=== PATIENT | male | born 1960 | race Caucasian/White ===

== ENCOUNTER → 2016-10-23 | Day surgery (SDC) | payer MEDICARE, SELFPAY ==
[~2016-10-23] VITALS: Ht 182.9 cm; Wt 99.8 kg
[~2016-10-23] MED LIST: ATARAX25 MG PO; BACTRIM DS1 TAB PO; CELEBREX200 MG PO; CYMBALTA60 MG PO; FLOMAX0.4 MG PO; LIPITOR10 MG PO; LYRICA200 MG PO; SINGULAIR10 MG PO; TYLENOL WITH C1 EACH PO; ZYRTEC10 MG PO
--- NOTE | ~2016-10-23 | OR ---
PATIENT'S NAME: SOLOMON MUHAMMAD [facility] AGE: 56 Y [address] 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 Left ureter stone. 2. Left partial renal duplication. POSTOPERATIVE DIAGNOSES: 1. Left ureter stone. 2. Left partial renal duplication. PROCEDURE PERFORMED: Cystoscopy, left retrograde pyelogram, left ureteroscopy with stent placement. ANESTHESIA: General. COMPLICATIONS: None. INDICATION FOR PROCEDURE: The patient is a 56-year-old male with a 3.5 x 2 mm left ureter stone in the proximal lower pole ureter. DESCRIPTION OF PROCEDURE: After informed consent was obtained, the patient was taken to the operating room. A general anesthetic was applied and he was placed in the dorsal lithotomy position. The groin area was prepped and draped in normal sterile fashion. Cystoscope was introduced into the urethra and bladder without difficulty. The left ureteral orifice was identified and cannulated with a guidewire up into the lower pole ureter pelvis. I then placed a yellow Flexi-Tip catheter over the guidewire into the distal ureter and injected the contrast. This filled up the ureter and the collecting system. No definite stones were noted or filling defects. I retracted the catheter further back into the ureter and injected more contrast which actually help partially fill the upper pole ureter which was actually smaller in caliber without evidence of obstruction. I then introduced the ureteroscope and drove this up towards the lower pole ureter pelvis. No stones were noted. Using the ureteroscope, I was able to locate the bifurcation and place the guidewire into the upper pole ureter. I then passed the opening catheter and injected contrast directly into the upper pole ureter which filled without filling defects. Both systems drained well. Following this, the guidewire was removed from the upper pole ureter and the cystoscope PATIENT'S NAME: SOLOMON MUHAMMAD [facility] AGE: 56 Y [address] ROOM: [place], [place] [address] [place] [facility] [place]: 10/23/2016 OR/Procedure Report DISCHARGE DATE: FAMILY PHYSICIAN: Irina Gutierres ATTENDING PHYSICIAN: Shavon Chou was back-loaded over the lower pole ureter guidewire. Next, a 6-Tamazight multi- length ureteral stent was passed over the guidewire up into the renal pelvis. Radiographic imaging showed good position of the stent. The patient tolerated the procedure well, was transferred to the recovery room in good condition. DETAILS OF THE RETROGRADES: On plain film, hardware was present from his previous back surgeries. No definite visible stones were noted. With injection of contrast, the lower pole ureter field and was mildly dilated. The calyces were sharp and the lower pole system drained well. With injection into the upper pole system, the ureter was of normal caliber without hydroureter. The collecting system was also normal. MD ALEN VASQUEZ/jordan /[id number] CC: LUIS Del Angel d: 10/26/16 0215 t: 10/26/16 1020, OPERATIVE SUMMARY
[2016-10-23 07:42] LABS: BASOPHIL # 0.1 K/uL (0.0-0.2); BASOPHIL % 0.6 %; EOSINOPHIL # 0.3 K/uL (0.0-0.5); HEMATOCRIT 42.7 % (37.0-53.0); HEMOGLOBIN 14.5 g/dL (12.0-17.0); IMMATURE GRANULOCYTE % 0.1 %; MCH 30.4 pg (27.0-34.0); MCV 89.5 fl (83.0-98.0); MONOCYTE # 0.7 K/uL (0.0-1.0); MPV 10.1 fl (9.4-12.4); NEUTROPHIL # (ANC) 5.2 K/uL (1.4-9.0); NEUTROPHIL % 63.3 %; NRBC % 0 /100WBC (0-0.00); PLATELET COUNT 269 K/uL (150-450); RBC 4.77 M/uL (4.00-6.00); RDW-CV 14.6 % (11.9-14.6); WBC 8.3 K/uL (4.0-11.0)
[2016-10-23 08:02] LABS: ALBUMIN 3.6 gm/dL (3.5-5.0); ALK PHOS 72 IU/L (33-138); ALT 23 IU/L (12-78); ANION GAP 9.8 (10.0-19.0); AST 16 IU/L (10-40); BLOOD UREA NITROGEN 15 mg/dL (6-24); CALCIUM 8.8 mg/dL (8.5-10.5); CHLORIDE 111 mMol/L (96-110); CO2 27 mMol/L (22-32); CREATININE 1.1 mg/dL (0.6-1.3); ESTIMATED GFR (MDRD EQUATION) > 60; POTASSIUM 3.8 mMol/L (3.7-5.1); SODIUM 144 mMol/L (135-145); TOTAL BILIRUBIN 0.2 mg/dL (0.0-1.5); TOTAL PROTEIN 6.8 g/dL (6.0-8.4)
== END | disposition disaster alternative care site (69) ==
LOC: GPOC 10-21 09:00 → GSDC 07:00
PROVIDERS: Urology
PROC: 0T778DZ Dilation of Left Ureter with Intraluminal Device, Via Natural or Artificial Opening Endoscopic (ICD-10-PCS; principal; 2016-10-23)
PROC: BT1FZZZ Fluoroscopy of Left Kidney, Ureter and Bladder (ICD-10-PCS; 2016-10-23)
DX: N20.1 Calculus of ureter (principal); M19.90 Unspecified osteoarthritis, unspecified site; F32.9 Major depressive disorder, single episode, unspecified; E78.00 Pure hypercholesterolemia, unspecified; J44.9 Chronic obstructive pulmonary disease, unspecified; M48.02 Spinal stenosis, cervical region; E78.5 Hyperlipidemia, unspecified; Z87.891 Personal history of nicotine dependence; Z98.890 Other specified postprocedural states; Z79.899 Other long term (current) drug therapy; Z88.1 Allergy status to other antibiotic agents; Z88.8 Allergy status to other drugs, medicaments and biological substances; Z88.5 Allergy status to narcotic agent
CPT/HCPCS: C1769; J1580; J2001; J7120